=== PATIENT | female | born 1970 | race Caucasian/White ===

== ENCOUNTER 2016-11-13 14:57 | Emergency (ER) | payer OTHER ==
[~2016-11-13] VITALS: Ht 172.7 cm; Wt 133.3 kg
--- NOTE | ~2016-11-13 | CT71 ---
[facility] A Service of [facility] RADIOLOGY TEXT RESULTS PATIENT: BOUCHRA LYNN LOCATION: [facility] : 74 UNIT #: [id number] AGE: [address]: Edda Paula SEX: F ORDER DR: [id number] [facility] [address] [place], [place] [address] [id number] E MR#: [id number] Acc #: [id number] NAME: BOUCHRA LYNN : 1970 SEX: F STUDY DATE/TIME: 11/13/2016 18:11 UNIT: [facility] ROOM: STUDY DESCRIPTION: CT Head Wo Contrast Attending Physician: Edda Paula P.A.-C. Referring Physician: Quan Lindo Jr., A.P.RCamacho Ordering Physician: Edda Paula P.A.-C. Primary Care Physician: Quan Lindo Jr., A.P.RCamacho MEDICAL IMAGING REPORT This report is preliminary unless electronic signature is present EXAM CT head, 11/13/2016 HISTORY Headache, pain top of head and back of head, dizziness for [address] head performed skull base through vertex without intravenous contrast. This CT exam was performed with one or more of the following radiation dose reduction techniques: automatic exposure control, adjustment of mA and/or kV according to patient size, and iterative reconstruction. COMPARISON 02/15/2014 FINDINGS Brainstem unremarkable. Cerebellum and cerebral hemispheres show normal cherry matter-white matter differentiation. No hemorrhage. No evidence of acute cortical ischemia. Midline structures are nondisplaced and the basal ganglia are intact. The ventricles, cisterns and sulci are normal in size and contour. There is no intra or extraaxial mass effect or abnormal intracranial fluid collection. Intraorbital soft tissues unremarkable in visualized extent. The visualized paranasal sinuses and mastoid air cells are clear. IMPRESSION No acute abnormality seen in brain. If patient has ongoing neurologic symptoms, consider followup imaging. No change in appearance from 02/15/2014. Dictated by... Joshua Young M.D. [facility] A Service of [facility] & [facility] RADIOLOGY TEXT RESULTS PATIENT: BOUCHRA LYNN LOCATION: [facility] : 74 UNIT #: [id number] AGE: [address]: Edda Paula SEX: F ORDER DR: THIS IS AN ELECTRONICALLY VERIFIED REPORT Joshua Young M.D. at 11/15/2016 7:36 AM Kely TD: 11/14/2016 08:15 JOB #: [id number] MEDICAL IMAGING REPORT Page 1 of 1 COPY
--- NOTE | ~2016-11-13 | EKG ---
PATIENT: BOUCHRA LYNN UNIT #: [id number] Ventricular Rate: 84 BPM Atrial Rate: 84 BPM P-R Interval: 156 ms QRS Duration: 68 ms Q-T Interval: 366 ms QTC Calculation(Bezet): 432 ms P [place]: 46 degrees Calculated R [place]: 27 degrees Calculated T [place]: 35 degrees Diagnosis Line: Sinus rhythm with marked sinus arrhythmia Diagnosis Line: Low voltage QRS Diagnosis Line: Borderline ECG Diagnosis Line: When compared with ECG of 18-MAY-2016 18:55, Diagnosis Line: No significant change was found Diagnosis Line: Confirmed by MARS LOPEZ MD ([id number]) on 11/14/2016 Diagnosis Line: 7:10:35 PM INTERPRETING MD: JESSICA REED
--- NOTE | ~2016-11-13 | CR72 ---
[facility] A Service of [facility] & [facility] RADIOLOGY TEXT RESULTS PATIENT: BOUCHRA LYNN LOCATION: [facility] : 74 UNIT #: [id number] AGE: [address]: Edda Paula SEX: F ORDER DR: [id number] [facility] [address] [place], [place] [address] [id number] E MR#: [id number] Acc #: [id number] NAME: BOUCHRA LYNN : 1970 SEX: F STUDY DATE/TIME: 11/13/2016 16:57 UNIT: [facility] ROOM: STUDY DESCRIPTION: CR Chest Single View Portable Attending Physician: Edda Paula P.A.-C. Referring Physician: Quan Lindo Jr., A.P.RCamacho Ordering Physician: Edda Paula P.A.-C. Primary Care Physician: Quan Lindo Jr., A.P.RCamacho MEDICAL IMAGING REPORT This report is preliminary unless electronic signature is present EXAM Chest portable, 11/13/2016, 1657 hours. CLINICAL HISTORY Cough and shortness of air for 2 days. History of hypertension and diabetes and smoking. COMPARISON 05/18/2016 FINDINGS Portable upright chest demonstrates normal cardiac, mediastinal and hilar contours. There is no acute pulmonary density or pleural effusion. IMPRESSION No acute cardiopulmonary findings. No appreciable change from 05/18/2016. Dictated by... Marguerite Hull M.D. THIS IS AN ELECTRONICALLY VERIFIED REPORT Marguerite Hull M.D. at 11/14/2016 9:08 AM DOMINIQUE/mallorie TD: 11/14/2016 06:43 JOB #: [id number] MEDICAL IMAGING REPORT Page 1 of 1 COPY
[~2016-11-13 14:57] MED LIST: ALPRAZOLAM PO; ASPIRIN81 M2 PO; CLONAZEPAM0.5 MG PO; FAMOTIDINE PO; GLUCOTROL PO; HYDROCODON-ACE1 EAC9 PO; LAMISIL; LEVEMIR100 UNITS/ SUBQ; LIPITOR PO; LISINOPRIL; LOPID600 MG PO; METFORMIN; METFORMIN PO; NICOTINE TRANSD21 MG EXT; PEPCID; ROBAXIN500 MG PO; SEROQUEL; SEROQUEL PO; TRICOR PO; TYLOX 5-500 CA1 EACH PO; TYLOX 5/500 CAP1 CAP PO; VOLTAREN75 MG PO; ZYRTEC10 M2 PO
[2016-11-13 15:44] LABS: BASOPHIL# 0.1 X10e3 (0-0.3); BASOPHIL% 0.9 % (0-2.5); DIFF IND NO; EOSINOPHIL# 0.1 X10e3 (0-0.7); EOSINOPHIL% 1.2 % (0.0-7.0); HEMATOCRIT 44.3 % (35.0-45.0); LYMPHOCYTE# 3.7 X10e3 (1.0-3.5); LYMPHOCYTE% 36.1 % (17.0-45.0); MEAN CELL VOLUME 90.2 FL (83-96); MEAN CORPUSCULAR HEMOGLOBIN 30.6 PG (28-34); MEAN CORPUSCULAR HGB CONC 33.9 g/dL (30-36); MEAN PLATELET VOLUME 6.4 FL (6.5-11.5); MONOCYTE# 0.8 X10e3 (0-1.0); MONOCYTE% 7.3 % (3.0-12.0); NEUTROPHIL# 5.6 X10e3 (1.5-7.1); NEUTROPHIL% 54.5 % (40-75); PLATELET COUNT 279 X10e3 (140-420); RED BLOOD COUNT 4.91 X10e (3.90-5.30); RED CELL DISTRIBUTION WIDTH 14.1 % (11.0-15.5); WHITE BLOOD COUNT 10.3 X10e3 (4.0-10.5)
[2016-11-13 16:13] LABS: POC - TROPONIN <0.05 ng/mL (<=0.05)
[2016-11-13 16:16] LABS: ALBUMIN SERUM 3.7 g/dL (3.5-5.0); BILIRUBIN, DIRECT 0.1 mg/dL (0.0-0.2); BILIRUBIN,INDIRECT 0.5 mg/dL (0.0-0.9); BILIRUBIN,TOTAL 0.6 mg/dL (0.2-2.0); BUN/CREATININE RATIO 26.25; CALCIUM SERUM 9.4 mg/dL (8.4-10.2); CREATININE SERUM 0.8 mg/dL (0.6-1.4); GLOM FILT RATE Estimated 89.7 mL/min (>60); POTASSIUM 3.9 mmol/L (3.5-5.1); PROTEIN TOTAL SERUM 7.7 g/dL (6.0-8.3)
[2016-11-13 18:04] LABS: POC - CKMB <1.0 ng/mL (0.0-7.9); POC - TROPONIN <0.05 ng/mL (<=0.05)
[2016-12-17] MEDS ORDERED: INVOKANA100 MG PO (03:43)
[2016-12-17] MEDS ORDERED: CLONAZEPAM0.5 MG PO (03:43)
[2016-12-17] MEDS ORDERED: SEROQUEL400 MG PO (03:43)
[2016-12-17] MEDS ORDERED: VITAMIN D250000 UNIT PO (03:45)
[2016-12-17] MEDS ORDERED: METFORMIN HCL500 M1 PO (03:49)
[2016-12-17] MEDS ORDERED: LIPITOR40 MG PO (03:49)
[2016-12-17] MEDS ORDERED: ASPIRIN81 M2 PO (03:50)
[2016-12-17] MEDS ORDERED: PRILOSEC10 M1 PO (03:50)
[2016-12-17] MEDS ORDERED: ZESTRIL2.5 MG PO (03:51)
[2016-12-17] MEDS ORDERED: HUMALOG100 UNIT/2 (03:52)
[2016-12-17] MEDS ORDERED: BASAGLAR K100 UNIT/1 (03:52)
[2016-12-17] MEDS ORDERED: HYDROCODON-ACE1 EAC9 PO (03:53)
[2016-12-25] MEDS ORDERED: XARELTO20 MG PO (17:33)
[2016-12-25] MEDS ORDERED: NICOTINE PATCH1 EACH TD (17:35)
[2016-12-25] MEDS ORDERED: LOPRESSOR PO (17:36)
[2016-12-25] MEDS ORDERED: PERCOCET PO (17:38)
[2016-12-25] MEDS ORDERED: DAKIN'S473 M1 (17:41)
== END 2016-11-13 19:24 | disposition home or self-care (01) ==
LOC: CED 14:57
PROVIDERS: Emergency Medicine; Physician Assistant
DX: R00.2 Palpitations (principal); R06.02 Shortness of breath; R11.0 Nausea; R19.7 Diarrhea, unspecified; R05 Cough; E11.9 Type 2 diabetes mellitus without complications; I10 Essential (primary) hypertension; I25.2 Old myocardial infarction; F31.9 Bipolar disorder, unspecified; F17.210 Nicotine dependence, cigarettes, uncomplicated; Z95.818 Presence of other cardiac implants and grafts; Z88.1 Allergy status to other antibiotic agents; Z88.8 Allergy status to other drugs, medicaments and biological substances
CPT/HCPCS: 36415; 70450; 71010; 80048; 80076; 82553; 82947; 84484; 85025; 85379; 93005; 99285

== ENCOUNTER 2016-11-25 15:01 | Emergency (ER) | payer OTHER ==
[~2016-11-25] VITALS: Ht 170.2 cm; Wt 122.5 kg
--- NOTE | ~2016-11-25 | CR72 ---
[facility] A Service of [facility] & [facility] RADIOLOGY TEXT RESULTS PATIENT: BOUCHRA YLNN LOCATION: [facility] [address] : 74 UNIT #: [id number] AGE: [address]: Minh Finch MD SEX: F ORDER DR: [id number] [facility] [address] [place], [place] [address] [id number] I MR#: [id number] Acc #: [id number] NAME: BOUCHRA LYNN : 1970 SEX: F STUDY DATE/TIME: 11/25/2016 17:12 UNIT: [facility] ROOM: [id number] STUDY DESCRIPTION: CR Chest Single View Portable Attending Physician: Minh Finch M.D. Ordering Physician: Arpit Henning M.D. Primary Care Physician: Quan Lindo Jr., A.P.R.N. MEDICAL IMAGING REPORT This report is preliminary unless electronic signature is present EXAM AP portable chest. Date: 11/25/2016. HISTORY Chest pain today with palpitations. COMPARISON AP portable chest 11/13/2016. FINDINGS A single AP view of the chest shows both lungs to be clear. The heart is normal in size. The mediastinal contour is normal. No significant bone abnormalities are seen. IMPRESSION Normal AP chest. . Dictated by... Ruth Quigley M.D. THIS IS AN ELECTRONICALLY VERIFIED REPORT Ruth Quigley M.D. at 11/28/2016 8:52 AM LLH/gz TD: 11/26/2016 08:11 JOB #: [id number] MEDICAL IMAGING REPORT Page 1 of 1 COPY
--- NOTE | ~2016-11-25 | EKG ---
PATIENT: BOUCHRA LYNN UNIT #: [id number] Ventricular Rate: 94 BPM Atrial Rate: 94 BPM P-R Interval: 150 ms QRS Duration: 80 ms Q-T Interval: 342 ms QTC Calculation(Bezet): 427 ms P [place]: 55 degrees Calculated R [place]: 21 degrees Calculated T [place]: 34 degrees Diagnosis Line: Sinus rhythm with Premature atrial complexes Diagnosis Line: Nonspecific T wave abnormality Diagnosis Line: Abnormal ECG Diagnosis Line: When compared with ECG of 13-NOV-2016 14:59, Diagnosis Line: Premature atrial complexes are now Present Diagnosis Line: Nonspecific T wave abnormality, worse in Anterior Diagnosis Line: leads Diagnosis Line: Confirmed by MARS LOPEZ MD ([id number]) on 11/25/2016 Diagnosis Line: 10:17:03 PM INTERPRETING MD: JESSICA REED
[2016-11-25 15:58] LABS: BASOPHIL# 0.1 X10e3 (0-0.3); BASOPHIL% 1.3 % (0-2.5); EOSINOPHIL# 0.2 X10e3 (0-0.7); HEMATOCRIT 46.3 % (35.0-45.0); HEMOGLOBIN 15.3 gm/dL (12.0-16.0); LYMPHOCYTE# 3.6 X10e3 (1.0-3.5); LYMPHOCYTE% 33.2 % (17.0-45.0); MEAN CORPUSCULAR HEMOGLOBIN 29.8 PG (28-34); MEAN CORPUSCULAR HGB CONC 33.1 g/dL (30-36); MEAN PLATELET VOLUME 6.8 FL (6.5-11.5); MONOCYTE# 0.6 X10e3 (0-1.0); MONOCYTE% 5.8 % (3.0-12.0); NEUTROPHIL# 6.2 X10e3 (1.5-7.1); NEUTROPHIL% 57.7 % (40-75); PLATELET COUNT 293 X10e3 (140-420); RED BLOOD COUNT 5.14 X10e (3.90-5.30); WHITE BLOOD COUNT 10.7 X10e3 (4.0-10.5)
[2016-11-25 15:59] LABS: DIFF IND NO
[2016-11-25 16:21] LABS: ALBUMIN SERUM 3.7 g/dL (3.5-5.0); BILIRUBIN, DIRECT 0.1 mg/dL (0.0-0.2); BILIRUBIN,INDIRECT 0.5 mg/dL (0.0-0.9); BILIRUBIN,TOTAL 0.6 mg/dL (0.2-2.0); CALCIUM SERUM 9.7 mg/dL (8.4-10.2); GLOM FILT RATE Estimated 68.5 mL/min (>60); POTASSIUM 3.8 mmol/L (3.5-5.1); PROTEIN TOTAL SERUM 7.7 g/dL (6.0-8.3)
[2016-11-25 16:22] LABS: POC - CKMB <1.0 ng/mL (0.0-7.9); POC - TROPONIN <0.05 ng/mL (<=0.05)
[2016-11-25 17:45] LABS: POC - CKMB <1.0 ng/mL (0.0-7.9); POC - TROPONIN <0.05 ng/mL (<=0.05)
[2016-12-17] MEDS ORDERED: SEROQUEL400 MG PO (03:43)
[2016-12-17] MEDS ORDERED: CLONAZEPAM0.5 MG PO (03:43)
[2016-12-17] MEDS ORDERED: INVOKANA100 MG PO (03:43)
[2016-12-17] MEDS ORDERED: VITAMIN D250000 UNIT PO (03:45)
[2016-12-17] MEDS ORDERED: LIPITOR40 MG PO (03:49)
[2016-12-17] MEDS ORDERED: METFORMIN HCL500 M1 PO (03:49)
[2016-12-17] MEDS ORDERED: ASPIRIN81 M2 PO (03:50)
[2016-12-17] MEDS ORDERED: PRILOSEC10 M1 PO (03:50)
[2016-12-17] MEDS ORDERED: ZESTRIL2.5 MG PO (03:51)
[2016-12-17] MEDS ORDERED: HUMALOG100 UNIT/2 (03:52)
[2016-12-17] MEDS ORDERED: BASAGLAR K100 UNIT/1 (03:52)
[2016-12-17] MEDS ORDERED: HYDROCODON-ACE1 EAC9 PO (03:53)
[2016-12-25] MEDS ORDERED: XARELTO20 MG PO (17:33)
[2016-12-25] MEDS ORDERED: NICOTINE PATCH1 EACH TD (17:35)
[2016-12-25] MEDS ORDERED: LOPRESSOR PO (17:36)
[2016-12-25] MEDS ORDERED: PERCOCET PO (17:38)
[2016-12-25] MEDS ORDERED: DAKIN'S473 M1 (17:41)
== END 2016-11-25 21:24 | disposition home or self-care (01) ==
LOC: CED 15:01 → CEDOF 18:40 → CED 18:40 → CEDOF 18:40 → CED 19:40
PROVIDERS: Emergency Medicine
DX: R07.9 Chest pain, unspecified (principal); I49.1 Atrial premature depolarization; R94.31 Abnormal electrocardiogram [ECG] [EKG]
CPT/HCPCS: 36415; 71010; 80048; 80076; 82553; 82947; 84484; 85025; 93005; 99285